=== PATIENT | female | born 2000 | race Caucasian/White ===

== ENCOUNTER 2024-07-17 14:18 | Emergency (ER) | payer SELFPAY ==
[2024-07-17 14:21] VITALS: BP 119/79; PULSE 110; RESP 16; TEMP 37.1; O2SAT 98; BMI 24.7
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
--- NOTE | 2024-07-17 15:29 | DI.RAD.S_ITS ---
PROCEDURE: XR CHEST 2V INDICATIONS: cough x 2 wks TECHNIQUE: 2 views of the chest were acquired. COMPARISON: None. FINDINGS: Surgical changes and devices: None. Lungs and pleura: Mild left perihilar bronchial wall thickening. No airspace consolidation or pleural effusion. Mediastinum: Mediastinal contours are normal. Heart size is normal. Bones and chest wall: Unremarkable IMPRESSION: Mild left perihilar bronchial wall thickening possibly viral infection. No airspace consolidation or pleural effusion. Dictated by: Padilla Westbrook M.D. on 07/17/2024 at 15:07 Approved by: Padilla Westbrook M.D. on 07/17/2024 at 15:08
[2024-07-17 16:14] VITALS: BP 120/71; PULSE 105; RESP 18; TEMP 36.9; O2SAT 98
== END 2024-07-17 16:15 | disposition home or self-care (01) ==
PROVIDERS: Emergency Provider Physician Assistant Medical
DX: G47.9 Sleep disorder, unspecified (principal); F41.9 Anxiety disorder, unspecified; R05.9 Cough, unspecified
CPT/HCPCS: 71046; 99281; 99283

== ENCOUNTER 2024-08-21 00:28 | Emergency (ER) | payer SELFPAY ==
[2024-08-21 00:39] VITALS: BP 125/69; PULSE 133; RESP 18; TEMP 38.7; O2SAT 98; BMI 24.7
[2024-08-21 00:44] VITALS: PULSE 136; O2SAT 96
--- NOTE | 2024-08-21 00:48 | ED.URI ---
HPI - URI/Sore Throat General Chief Complaint: Upper Respiratory Symptoms Stated Complaint: 101.8 temp, SABA, sore throat Time Seen by Provider: 08/21/24 00:44 Source: patient Mode of arrival: Ambulatory History of Present Illness HPI Narrative: 23-year-old female without any significant past medical history comes into the ED from for evaluation flu-like symptoms, fever chills cough muscle aches ongoing persistent for the past 12 hours, states that she had a fever earlier today did not take any medication checked her fever before coming into the ED and noted that she was still having a fever of 101 therefore decided come into the ED for further evaluation treatment. She denies any actual chest pain nausea vomiting abdominal pain or any other GI/ symptoms. No recent travel no known sick contacts Related Data Previous Rx's Medication Instructions Recorded hydroxyzine HCl 25 mg tablet 25 mg PO BEDTIME #14 tabs 07/17/24 albuterol sulfate 90 mcg/actuation 2 inh inhalation QID PRN shortness 08/21/24 breath activated powder inhaler of breath or wheezing #1 ea methylprednisolone 4 mg tablets in 4 mg PO DAILY #21 ea 08/21/24 a dose pack (Medrol (David)) Allergies Allergy/AdvReac Type Severity Reaction Status Date / Time cephalexin [From Keflex] Allergy Rash Verified 07/17/24 14:28 Review of Systems Review of Systems Narrative: General: Positive fever chills HEENT: Positive sore throat Cardiovascular: Denies any chest pain, palpitations, shortness of breath, tachycardia Respiratory: Positive cough denies wheeze stridor shortness of breath GI/: Denies any abdominal pain, nausea, vomiting, diarrhea, bright red blood per rectum, melanotic stools, urinary frequency, urinary retention, dysuria, hematuria MSK: Positive myalgias Skin: Denies any rashes, lesions, discoloration Neuro: Denies any headache, lightheadedness, dizziness, fainting, weakness Psych: Denies SI/HI Patient History Social History Smoking Status: Never smoker Smoking Status: Never smoker Exam Narrative Exam Narrative: General: Cooperative, comfortable, well-developed, not in acute distress HEENT: Patient is speaking full sentences protecting airway, exudate noted to the posterior oropharynx, Normocephalic, atraumatic, PERRLA, normal sclera, eyelids normal, Neck: Active full range of motion, atraumatic Chest: Normal to inspection, negative crepitus, no overlying erythema ecchymosis Respiratory: Normal respiratory effort, not in acute respiratory distress, clear to auscultation bilaterally negative cough, wheeze, tachypnea, rhonchi, rales Cardiology: Regular rate rhythm negative gallop, murmur, rubs GI/: Normal to inspection, soft, nonrigid, no tenderness to palpation, exam deferred MSK: Full range of active range of motion of all 4 extremities, atraumatic Skin: No rashes lesions noted Neuro: Alert awake oriented x3, moves all 4 extremities spontaneously, cranial nerves intact, able to answer all questions appropriately follows commands appropriately Psych: Cooperative, negative suicidal or homicidal ideations Initial Vital Signs Initial Vital Signs: Vital Signs Temperature 101.6 F H 08/21/24 00:39 Pulse Rate 133 H 08/21/24 00:39 Respiratory Rate 18 08/21/24 00:39 Blood Pressure 125/69 08/21/24 00:39 Pulse Oximetry 98 08/21/24 00:39 Oxygen Delivery Method Room Air 08/21/24 00:39 Course Orders Ordered: ED Orders 08/21/24 00:39 Covid-19 + FLU A/B + RSV - PCR Stat 08/21/24 00:52 Strep Grp A by PCR Rapid Stat Discontinued Medications Acetaminophen (Acetaminophen 325 Mg Tablet) 650 mg PO NOW ONE Stop: 08/21/24 00:49 Last Admin: 08/21/24 00:54 Dose: 650 mg Documented By: Dexamethasone (Dexamethasone 4 Mg/Ml Vial) 5 mg INJ NOW ONE Stop: 08/21/24 01:54 Last Admin: 08/21/24 02:05 Dose: Not Given Dexamethasone (Dexamethasone 4 Mg/Ml Vial) 4 mg INJ NOW ONE Stop: 08/21/24 02:05 Ketorolac Tromethamine (Ketorolac 30 Mg/Ml Vial) 15 mg IM NOW ONE Stop: 08/21/24 01:54 Vital Signs Vital signs: Vital Signs - 8 hr 08/21/24 00:39 Temperature 101.6 F H Pulse Rate 133 H Respiratory Rate 18 Blood Pressure 125/69 Pulse Oximetry 98 Oxygen Delivery Method Room Air MDM - URI/Sore Throat Differential Diagnosis Differential diagnosis: Likely other (Strep pharyngitis, COVID, flu, RSV) Lab Data Labs: Lab Results 08/21/24 08/21/24 Range/Units 00:39 00:52 SARS-CoV-2 (PCR) Negative (Negative) Influenza A (RT-PCR) Flu a negative (NEGATIVE) Influenza B (RT-PCR) Flu b negative (NEGATIVE) RSV (PCR) Negative (Negative) Group A Strep (PCR) Negative (Negative) MDM Narrative Medical decision making narrative: 23-year-old female without any significant past medical history comes into the ED for flu-like symptoms ongoing persistent for the past few days, also complaining of a sore throat, she states that she did not take any medications for her symptoms for the past 24 hours, she presents due to persistent symptoms denies any recent travel or sick contacts. Patient was tested for strep throat and had Respiratory panel which did not come back positive. Patient will be sent home for symptomatic treatment for acute bronchitis, patient was given strict return precautions she verbalized understanding of this and agrees to being discharged home with outpatient follow up Discharge Plan Departure Patient Disposition: Home Clinical Impression: Bronchitis Instructions: DI for Acute Bronchitis Activity Restrictions/Additional Instructions: Please follow up with the primary care doctor Please read the discharge instructions sheet carefully and bring all papers to all doctor follow-up visits, as it may contain information that your doctor may want to see. Disease processes change and evolve, if your symptoms worsen or if you develop any new symptoms that are concerning to you please return for evaluation. Your evaluation today does not show any evidence of any life-threatening/serious illnesses requiring admission to the hospital or surgery. Please follow-up with your doctor for re-evaluation in approximately 1 day. Seek immediate medical attention for any worrisome symptoms. *If you do not have a primary care provider please contact the [facility] Resource line at [phone]. They will ask some questions about your medical history and help get you set up with a doctor in the community. Prescriptions: New methylprednisolone [Medrol (Dvaid)] 4 mg tablets,dose pack 4 mg PO DAILY Qty: 21 0RF albuterol sulfate 90 mcg/actuation aerosol powdr breath activated 2 inh inhalation QID PRN (Reason: shortness of breath or wheezing) Qty: 1 0RF No Action hydroxyzine HCl 25 mg tablet 25 mg PO BEDTIME Qty: 14 0RF Stand Alone Forms: Patient Portal/API/Survey, Work Release Note
[2024-08-21] MEDS: ACETAMINOPHEN 325 MG TABLET 650 MG PO (00:54)
[2024-08-21 01:00] VITALS: PULSE 132; O2SAT 97
[2024-08-21 01:13] LABS: Strep Grp A by PCR Rapid Negative (Negative)
[2024-08-21 01:30] VITALS: PULSE 114; O2SAT 97
[2024-08-21 01:37] LABS: Influenza A - CEPHEID Flu A NEGATIVE (NEGATIVE); Influenza B - CEPHEID Flu B NEGATIVE (NEGATIVE); Respiratory Syncytial Virus Negative (Negative)
[2024-08-21 01:49] LABS: COVID-19 CEPHEID 4-PLEX PCR Negative (Negative)
[2024-08-21] MEDS: KETOROLAC 30 MG/ML VIAL 15 MG IM (02:12)
[2024-08-21] MEDS: DEXAMETHASONE 4 MG/ML VIAL INJ (02:13)
[2024-08-21 02:19] VITALS: BP 104/70; RESP 18
== END 2024-08-21 02:20 | disposition home or self-care (01) ==
PROVIDERS: Emergency Provider Student in an Organized Health Care Education/Training Program
DX: J20.9 Acute bronchitis, unspecified (principal)
CPT/HCPCS: 0241U; 87651; 96372; 99283; 99284; J1100; J1885

== ENCOUNTER 2024-09-29 14:50 | Emergency (ER) | payer SELFPAY ==
[2024-09-29 14:55] VITALS: BP 137/67; PULSE 80; RESP 18; TEMP 36.6; O2SAT 100; BMI 24.7
[2024-09-29 17:05] LABS: Bacteria Urine Occasional (0-1); RBC Urine >100/HPF (0-5/HPF); Squamous Epithelial Cell Urine 0-1 /HPF (0-5/HPF); Urine Volume 10mL (spun); WBC Urine 1-5/HPF (0-5/HPF)
[2024-09-29 17:06] LABS: Culture Indicated Urine Cult Not Indicated
== END 2024-09-29 18:00 | disposition left against medical advice (07) ==
PROVIDERS: Emergency Provider Emergency Medicine
DX: M79.652 Pain in left thigh (principal)
CPT/HCPCS: 81003; 81015; 81025; 99282

== ENCOUNTER 2025-02-12 14:20 | Emergency (ER) | payer MEDICAID, SELFPAY ==
[2025-02-12 15:10] VITALS: BP 114/67; PULSE 94; RESP 14; TEMP 37.1; O2SAT 100; BMI 26.5
[2025-02-12] MEDS: ONDANSETRON 4 MG ODT PO (15:16)
[2025-02-12 17:50] LABS: Culture Indicated Urine Specimen Cultured
[2025-02-12 19:33] VITALS: BP 112/56; PULSE 88; RESP 18; TEMP 36.4; O2SAT 100
--- NOTE | 2025-02-12 19:34 | PC.NURSE ---
Pt states that symptoms have not changed even after the zofran. However, at 15 weeks along she has had nausea and back pain almost entire .
--- NOTE | 2025-02-12 21:31 | ED.NAVMDI ---
HPI - Nausea/Vomiting/Diarrhea General Chief complaint: Nausea/Vomiting/Diarrhea Stated complaint: weak, hot/cold flashes, headache, 15wks Time Seen by Provider: 02/12/25 20:43 Source: patient Mode of arrival: Ambulatory History of Present Illness HPI Narrative: 24-year-old with last menstrual period perhaps Easter, [facility] ultrasound done at the time, EDC 08/07/2025, believes herself to be 15 weeks gestation now, complaining of nausea nonbloody emesis, no diarrhea, having back pain and leg pain, no fevers or chills. No vaginal bleeding recent. No leaking of fluid. Related Data Previous Rx's ?Medication ?Instructions ?Recorded hydroxyzine HCl 25 mg tablet 25 mg PO BEDTIME #14 tabs 07/17/24 albuterol sulfate 90 mcg/actuation 2 inh inhalation QID PRN shortness 08/21/24 breath activated powder inhaler of breath or wheezing #1 ea methylprednisolone 4 mg tablets in 4 mg PO DAILY #21 ea 08/21/24 a dose pack (Medrol (David)) nitrofurantoin 100 mg PO Q12H 7 days #14 caps 02/12/25 monohydrate/macrocrystals 100 mg capsule (Macrobid) Allergies Allergy/AdvReac Type Severity Reaction Status Date / Time cephalexin (From Keflex) Allergy Rash Verified 02/12/25 15:10 Patient History Social History Smoking Status: Never smoker Smoking Status: Never smoker Exam Narrative Exam Narrative: GENERAL: Well-developed patient, in mild distress. HEAD: Atraumatic. Normocephalic. EYES: Pupils equal round and reactive. Extraocular motions intact. No scleral icterus. No injection or drainage. ENT: Nose without bleeding, purulent drainage. Throat without erythema, tonsillar hypertrophy or exudate. Airway patent. NECK: Trachea midline. Non tender CARDIOVASCULAR: Regular rate and rhythm without murmurs, gallops, or rubs. RESPIRATORY: Clear to auscultation. Breath sounds equal bilaterally. No wheezes, rales, or rhonchi. GASTROINTESTINAL: Abdomen soft, non-tender, nondistended. Fundal height palpable mid-way pubis to umbilicus. EXTREMITIES: No edema or joint tenderness. BACK: Nontender without deformity or crepitance. No flank tenderness. NEURO: AOx3. Motor functions grossly nonfocal. SKIN: No rash or erythema of visible areas Initial Vital Signs Initial Vital Signs: Vital Signs Temperature 98.8 F 02/12/25 15:10 Pulse Rate 94 H 02/12/25 15:10 Respiratory Rate 14 02/12/25 15:10 Blood Pressure 114/67 02/12/25 15:10 Pulse Oximetry 100 02/12/25 15:10 Oxygen Delivery Method Room Air 02/12/25 15:10 Course Orders Ordered: Discontinued Medications Ceftriaxone Sodium 1,000 mg/ (Sodium Chloride) 100 mls @ 200 mls/hr IV NOW ONE Stop: 02/12/25 21:25 Last Admin: 02/12/25 22:00 Dose: Not Given Documented By: Nitrofurantoin Macrocrystals (Nitrofurantoin Er 100 Mg Capsule) 100 mg PO NOW ONE Stop: 02/12/25 22:16 Last Admin: 02/12/25 22:41 Dose: 100 mg Documented By: NETO Ondansetron HCl (Ondansetron 4 Mg/2 Ml Inj) 4 mg IV NOW PRN PRN Reason: Nausea And Vomiting Ondansetron HCl (Ondansetron 4 Mg Odt) 4 mg PO NOW PRN PRN Reason: Nausea And Vomiting Last Admin: 02/12/25 15:16 Dose: 4 mg Documented By: GARRY Ondansetron HCl (Ondansetron 4 Mg Odt Prepack) 1 bottle MISC DIRECTED ONE Stop: 02/12/25 21:46 Last Admin: 02/12/25 22:41 Dose: 1 bottle Documented By: NETO Vital Signs Vital signs: Vital Signs - 8 hr 02/12/25 19:33 Temperature 97.6 F Pulse Rate 88 Respiratory Rate 18 Blood Pressure 112/56 L Pulse Oximetry 100 Oxygen Delivery Method Room Air MDM - Nausea/Vomiting/Diarrhea Lab Data 02/12/25 22:12 02/12/25 22:12 Labs: Lab Results 02/12/25 02/12/25 Range/Units 15:14 22:12 WBC 9.9 (4.5-11.0) X10^3/uL RBC 4.29 (4.0-5.2) X10^6/uL Hgb 12.9 (12.0-16.0) g/dL Hct 37.1 (36-46) % MCV 86.6 (80-100) fL MCH 30.0 (26-34) PG MCHC 34.7 (30-36) % RDW 12.5 (11.6-14.8) % Plt Count 243 (150-400) X10^3/uL Neut % (Auto) 68.5 (50-75) % Lymph % (Auto) 23.2 L (25-40) % [place] % (Auto) 5.9 (3-14) % Eos % (Auto) 1.2 L (2-4) % Baso % (Auto) 1.2 (0-2) % Neut # (Auto) 6800 (2485-3041) /uL Lymph # (Auto) 2300 (3172-8203) /uL [place] # (Auto) 600 (0-900) /uL Eos # (Auto) 100 (0-450) /uL Baso # (Auto) 100 (0-100) /uL Sodium 136 L (137-145) mmol/L Potassium 3.4 (3.4-5.1) mmol/L Chloride 104 (98-107) mmol/L Carbon Dioxide 26 (22-32) mmol/L BUN 6 L (7-17) mg/dL Creatinine 0.57 (0.52-1.04) mg/dL Estimated GFR > 60 (>60) mL/min BUN/Creatinine Ratio 10.5 (6-22) Glucose 92 (70-99) mg/dL Calcium 8.9 (8.4-10.2) mg/dL Total Bilirubin 0.3 (0.2-1.3) mg/dL AST 24 (14-36) IU/L ALT 13 (<35) IU/L Alkaline Phosphatase 59 (38-126) U/L Total Protein 7.2 (6.3-8.2) g/dL Albumin 4.1 (3.5-5.0) g/dL Globulin 3.1 (1.7-4.1) g/dL Albumin/Globulin Ratio 1.3 (1.0-2.8) Urine RBC None seen (0-5/HPF) Urine WBC 5-10/hpf H (0-5/HPF) Ur Squamous Epith Cells 1-5 /hpf (0-5/HPF) Urine Bacteria Many (>30) H (None) Urine Mucus 1+ H (Negative) Ur Culture Indicated? Specimen cultured Vol Urine Centrifuged 10ml (spun) Blood Type A Negative Urine Dip Bedside Urine Glucose Negative Bedside Urine Bilirubin - Negative Bedside Urine Ketone +++ 80 Urine Specific [place] 1.020 Bedside Urine Occult Blood - Negative Bedside Urine pH 6.0 Bedside Urine Protein +/- 15 Bedside Urine Urobilinogen - Negative Bedside Urine Nitrite - Negative Bedside Urine Leukocytes + 70 Esterase Imaging Data Ultrasound pelvis: Radiologist's Impression: [address] [id number] Ultrasound Report Signed Patient: Kristina Clark MR#: [id number] : 2000 Acct:[id number] Age/Sex: 24 / F Date of Service: 02/12/25 Loc: ED Accession Number: [id number] Procedure: US OB >= 14 weeks Fetus Ordering Provider: Abiodun Alonzo MD PROCEDURE: US OB >= 14 WEEKS FETUS INDICATIONS: abd back pain, 15 weeks gest OUTSIDE/PRIOR DATING DATA: Last menstrual period (LMP): 10/31/2024. LMP-based estimated date of delivery (GERALDO): 08/07/2025. TECHNIQUE: Real-time scanning was performed of the fetus, with image documentation and biometric measurements. Endovaginal scanning: Not performed COMPARISON: None. FINDINGS: General: A single living intrauterine gestation is present. Presentation: Transverse. Placenta: Placental position is posterior , without previa. Amniotic fluid index: Early gestational age. Deepest pocket is 4 cm. heart rate: 151 beats per minute. Maternal cervical canal: 2.7 cm cm long. Normal lower limit is 2.5 cm. Clinically estimated gestational age: 14 weeks, 6 days IMPRESSION: Single live intrauterine consistent with 14 weeks and 6 days. No abnormalities are identified. We strive to produce accurate, complete, and clear reports of imaging services. To assist us in improving patient care, this report was composed using standard report templates and voice recognition software. Therefore, it may contain abnormal punctuation, insertions and/or omissions. Occasional wrong-word or sound-alike substitutions may occur. Though we review the report and make efforts to correct it, we do recommend that the report be read carefully in proper context to recognize any text inaccuracies. Dictated by: Guille Dillon M.D. on 02/12/2025 at 23:01 Approved by: Guille Dillon M.D. on 02/12/2025 at 23:03 [facility] Narrative Medical decision making narrative: 24-year-old female reports 1st , due date via [facility] ultrasound, believes her EDC to be 08/07/2025, now 15 weeks gestation, having nausea and vomiting, not yet having any visit with any established provider. Some back discomfort. No fever on triage, unremarkable vitals. Urinalysis suspicious for infection, urine culture ordered. History of cephalosporin allergy. Macrobid antibiotic given, prescription 7 day course sent to her pharmacy. Ultrasound pelvis today US shows live IUP carvajal 14w6d EGA, no acute changes. See radiology report. Given contact information for Obstetrics on-call Dr. Carvalho for follow-up and care establish care. Follow up with Dr. Carvalho office this week. Return precautions discussed. Home with family. Discharge Plan Departure Patient Disposition: Home Clinical Impression: Urinary tract infection, Activity Restrictions/Additional Instructions: Fifteen week gestation , with nausea and vomiting, some back discomfort. No fever on triage. Urinalysis suspicious for infection. History of allergy to cephalosporin antibiotics. Oral dose of nitrofurantoin/Macrobid antibiotic given in the emergency department, prescription for 7 day course sent to your pharmacy. Take antibiotics as prescribed. Drink plenty of fluids. Ultrasound of the pelvis today showed live intrauterine at 14 weeks 6 days size, no acute changes were noted on imaging today. Follow up with Obstetrics for further care, contact information given for the office of Dr. Carvalho who was on-call. Prescriptions: New nitrofurantoin monohyd/m-cryst [Macrobid] 100 mg capsule 100 mg PO Q12H 7 Days Qty: 14 0RF Rx Instructions: must administer with a meal/food No Action hydroxyzine HCl 25 mg tablet 25 mg PO BEDTIME Qty: 14 0RF methylprednisolone [Medrol (David)] 4 mg tablets,dose pack 4 mg PO DAILY Qty: 21 0RF albuterol sulfate 90 mcg/actuation aerosol powdr breath activated 2 inh inhalation QID PRN (Reason: shortness of breath or wheezing) Qty: 1 0RF Referrals: Miscellaneous,Doctor, [Primary Care Provider, Medical] Sydnee Carvalho DO [Physician, PLUMBER SUPERVISOR] Stand Alone Forms: Patient Portal/API, Work Release Note
--- NOTE | 2025-02-12 21:44 | DI.US.S_ITS ---
PROCEDURE: US OB >= 14 WEEKS FETUS INDICATIONS: abd back pain, 15 weeks gest OUTSIDE/PRIOR DATING DATA: Last menstrual period (LMP): 10/31/2024. LMP-based estimated date of delivery (GERALDO): 08/07/2025. TECHNIQUE: Real-time scanning was performed of the fetus, with image documentation and biometric measurements. Endovaginal scanning: Not performed COMPARISON: None. FINDINGS: General: A single living intrauterine gestation is present. Presentation: Transverse. Placenta: Placental position is posterior , without previa. Amniotic fluid index: Early gestational age. Deepest pocket is 4 cm. heart rate: 151 beats per minute. Maternal cervical canal: 2.7 cm cm long. Normal lower limit is 2.5 cm. Clinically estimated gestational age: 14 weeks, 6 days IMPRESSION: Single live intrauterine consistent with 14 weeks and 6 days. No abnormalities are identified. We strive to produce accurate, complete, and clear reports of imaging services. To assist us in improving patient care, this report was composed using standard report templates and voice recognition software. Therefore, it may contain abnormal punctuation, insertions and/or omissions. Occasional wrong-word or sound-alike substitutions may occur. Though we review the report and make efforts to correct it, we do recommend that the report be read carefully in proper context to recognize any text inaccuracies. Dictated by: Guille Dlilon M.D. on 02/12/2025 at 23:01 Approved by: Guille Dillon M.D. on 02/12/2025 at 23:03
--- NOTE | 2025-02-12 22:21 | PC.NURSE ---
Pt to imaging via ED wheelchair with traffic control technician
[2025-02-12 22:23] LABS: Add Manual Diff / Slide Review NO; Hematocrit 37.1 % (36-46); Hemoglobin 12.9 g/dL (12.0-16.0); Lymphocytes Absolute Auto 2300 /uL (1100-4500); Mean Corpuscular HGB Conc 34.7 % (30-36); Mean Corpuscular Hemoglobin 30.0 PG (26-34); Mean Corpuscular Volume 86.6 fL (80-100); Platelet Count 243 X10^3/uL (150-400)
[2025-02-12 22:34] LABS: Alanine Aminotransferase 13 IU/L (<35); Albumin 4.1 g/dL (3.5-5.0); Albumin Globulin Ratio 1.3 (1.0-2.8); Alkaline Phosphatase 59 U/L (38-126); Blood Urea Nitrogen 6 mg/dL (7-17); Calcium 8.9 mg/dL (8.4-10.2); Carbon Dioxide 26 mmol/L (22-32); Chloride 104 mmol/L (98-107); Estimated Glomerular Filt Rate > 60 mL/min (>60); Globulin 3.1 g/dL (1.7-4.1); Glucose 92 mg/dL (70-99); HEMOLYSIS < 15 (0-50); Potassium 3.4 mmol/L (3.4-5.1); Sodium 136 mmol/L (137-145); Total Protein 7.2 g/dL (6.3-8.2)
[2025-02-12] MEDS: ONDANSETRON 4 MG ODT PREPACK 1 BOTTLE MISC (22:41)
[2025-02-12] MEDS: NITROFURANTOIN ER 100 MG CAPSULE PO (22:41)
[2025-02-13 00:09] VITALS: BP 120/69; PULSE 97; RESP 15; O2SAT 97
== END 2025-02-13 00:10 | disposition home or self-care (01) ==
PROVIDERS: Family Medicine; Emergency Provider Emergency Medicine
DX: O23.42 Unspecified infection of urinary tract in pregnancy, second trimester (principal); N39.0 Urinary tract infection, site not specified; Z3A.15 15 weeks gestation of pregnancy
CPT/HCPCS: 76811; 80053; 81003; 81015; 85025; 86900; 86901; 87086; 99283; 99284

== ENCOUNTER → 2025-03-20 14:38 | Outpatient (CLI) | payer OTHER, SELFPAY ==
[2025-03-20 15:20] LABS: Add Manual Diff / Slide Review NO; Hematocrit 36.0 % (36-46); Hemoglobin 12.4 g/dL (12.0-16.0); Lymphocytes Absolute Auto 1700 /uL (1100-4500); Mean Corpuscular HGB Conc 34.5 % (30-36); Mean Corpuscular Hemoglobin 29.9 PG (26-34); Mean Corpuscular Volume 86.7 fL (80-100); Platelet Count 267 X10^3/uL (150-400)
[2025-03-20 15:27] LABS: Hemoglobin A1C% w Est Avg Glu 5.0 % (4.0-6.0)
[2025-03-20 15:31] LABS: Appearance Urine UA CLEAR; Bilirubin Urine UA NEGATIVE (NEGATIVE); Color Urine UA YELLOW; Glucose Urine UA NEGATIVE (Negative); Ketones Urine UA NEGATIVE (NEGATIVE); Leukocyte Esterase Urine UA TRACE (NEGATIVE); Nitrite Urine UA NEGATIVE (Negative); Occult Blood Urine UA NEGATIVE (Negative); Protein Urine UA NEGATIVE (Negative); Specific Gravity Urine UA 1.020 (1.000-1.035); Urobilinogen Urine UA 0.2 E.U./dL (0.2)
[2025-03-20 15:33] LABS: pH Urine UA 6.0 (4.5-8.0)
[2025-03-20 15:49] LABS: Natera Collection Specimen Collected
[2025-03-20 17:12] LABS: Urine N gonorrhoeae NOT DETECTED
[2025-03-20 17:13] LABS: Urine Chlamydia DETECTED
[2025-03-21 14:41] LABS: Hepatitis B Surface Antigen NEGATIVE s/c (NEGATIVE)
[2025-03-21 14:59] LABS: HIV 1 & 2 Ab/Ag 4th Gen Combo NEGATIVE (NEGATIVE); Hep C Virus Ab w/Reflex Quant NEGATIVE s/c (NEGATIVE)
== END ==
PROVIDERS: PCP Family Medicine; Referring Provider Family Medicine; Visit Provider Family Medicine
DX: O99.210 Obesity complicating pregnancy, unspecified trimester (principal)
CPT/HCPCS: 36415; 80055; 81003; 81015; 83036; 86787; 86803; 86850; 86900; 86901; 87086; 87389; 87491; 87591

== ENCOUNTER 2025-03-27 22:12 | Observation (INO) | payer OTHER, SELFPAY ==
[2025-03-28 00:14] LABS: Appearance Urine UA CLEAR; Bilirubin Urine UA 1+ (NEGATIVE); Color Urine UA YELLOW; Glucose Urine UA NEGATIVE (Negative); Ketones Urine UA 3+ (NEGATIVE); Leukocyte Esterase Urine UA TRACE (NEGATIVE); Nitrite Urine UA NEGATIVE (Negative); Occult Blood Urine UA NEGATIVE (Negative); Protein Urine UA NEGATIVE (Negative); Specific Gravity Urine UA 1.020 (1.000-1.035); Urobilinogen Urine UA 2.0 E.U./dL (0.2)
[2025-03-28 00:17] LABS: pH Urine UA 6.5 (4.5-8.0)
[2025-03-28 00:20] LABS: Ictotest Urine Negative (Negative)
[2025-03-28 00:22] LABS: Culture Indicated Urine Cult Not Indicated
== END 2025-03-28 00:36 | disposition home or self-care (01) ==
LOC: LABOR 22:13
PROVIDERS: Admitting Provider Family Medicine; PCP Family Medicine; Referring Provider Family Medicine; Visit Provider Family Medicine
DX: O23.42 Unspecified infection of urinary tract in pregnancy, second trimester (principal); Z3A.21 21 weeks gestation of pregnancy
CPT/HCPCS: 59025; 81001; 87086; G0378; G0379

== ENCOUNTER → 2025-04-20 13:33 | Outpatient (CLI) | payer OTHER, SELFPAY ==
--- NOTE | 2025-04-20 13:34 | DI.US.S_ITS ---
PROCEDURE: US OB >= 14 WEEKS FETUS INDICATIONS: anatomy scan OUTSIDE/PRIOR DATING DATA: Last menstrual period (LMP): 10/31/24 LMP-based estimated date of delivery (GERALDO): 08/07/25. First dating scan (date and location): None available. Estimated date of delivery (GERALDO) from first dating scan: Not applicable. The calculations are made using the working GERALDO of 08/14/25. TECHNIQUE: Real-time scanning was performed of the fetus, with image documentation and biometric measurements. Endovaginal scanning: Not performed COMPARISON: [facility], OB >= 14 WEEKS FETUS, 02/12/2025, 22:29. FINDINGS: General: A single living intrauterine gestation is present. Presentation: Transverse, head to maternal right. Placenta: Placental position is posterior , without previa. Grow delete Amniotic fluid index: 19.4 cm, normal range is 5-24 cm. Single deepest vertical pocket is 6.3 cm. heart rate: 158 beats per minute. Maternal cervical canal: Closed and 3.5 cm long. Normal lower limit is 2.5 cm. biometrics: Biparietal diameter: 5.8 cm, 23 weeks four days Head circumference: 21.8 cm, 23 weeks six days Abdominal circumference: 19.0 cm, 23 weeks five days Femur length: 3.9 cm, 22 weeks three days Clinically estimated gestational age: 24 weeks three days Composite gestational age from present scan: 23 weeks three days Estimated weight and percentile: 575 g, 6th percentile. Anatomic survey: Neuro: Ventricles are non-dilated at less than 10 mm. Cisterna magna is normal at 3-11 mm. Cerebellum is normal in size and morphology. Nuchal skin fold: Normal at less than 6 mm between 14-21 weeks gestational age. Face: Nose and lips, facial profile are normal. Spine: No evidence for spina bifida. Heart: 4-chambered heart is present, with normal ventricular outflow tracts. Diaphragm: Diaphragm is intact. Stomach: Left-sided stomach is present. Kidneys: No hydronephrosis. Normal is less than 5 mm in 2nd trimester, less than 7 mm in 3rd trimester. Cord: 3-vessel cord has orthotopic insertion. Bladder: Normal in size. Extremities: All 4 extremities identified. IMPRESSION: Single living intrauterine with an estimated weight at the 6th percentile. Composite gestational age is one week behind the expected gestational age. Normal anatomy. Closed cervix and normal amniotic fluid volume. We strive to produce accurate, complete, and clear reports of imaging services. To assist us in improving patient care, this report was composed using standard report templates and voice recognition software. Therefore, it may contain abnormal punctuation, insertions and/or omissions. Occasional wrong-word or sound-alike substitutions may occur. Though we review the report and make efforts to correct it, we do recommend that the report be read carefully in proper context to recognize any text inaccuracies. Dictated by: Kadie Reaves M.D. on 04/21/2025 at 22:39 Approved by: Kadie Reaves M.D. on 04/21/2025 at 22:44
== END ==
LOC: US 13:34
PROVIDERS: PCP Family Medicine; Referring Provider Family Medicine; Visit Provider Family Medicine
DX: Z34.02 Encounter for supervision of normal first pregnancy, second trimester (principal)
CPT/HCPCS: 76811

== ENCOUNTER → 2025-05-11 16:29 | Outpatient (CLI) | payer OTHER, SELFPAY ==
--- NOTE | 2025-05-11 16:30 | DI.US.S_ITS ---
PROCEDURE: US OB FOLLOW UP INDICATIONS: f/up growth restriction OUTSIDE/PRIOR DATING DATA: First dating scan (date and location): 04/20/2025. Estimated date of delivery (GERALDO) from first dating scan: 08/14/2025. The calculations are made using the clinical GERALDO of 08/07/2025. TECHNIQUE: Real-time scanning was performed of the fetus, with image documentation and biometric measurements. Endovaginal scanning: Not performed COMPARISON: [facility], OB >= 14 WEEKS FETUS, 04/20/2025, 13:56. FINDINGS: General: A single living intrauterine gestation is present. Presentation: Vertex. Placenta: Placental position is posterior, without previa. Amniotic fluid index: 16.3 cm, normal range is 5-24 cm. Single deepest vertical pocket is 5 cm. heart rate: 145 beats per minute. Maternal cervical canal: 4.1 cm long. Normal lower limit is 2.5 cm. biometrics: Biparietal diameter: 7 cm, 28 weeks 2 days Head circumference: 25.1 cm, 27 weeks 1 day Abdominal circumference: 21.8 cm, 26 weeks 2 days Femur length: 4.8 cm, 26 weeks 1 day Clinically estimated gestational age: 27 weeks 3 days Composite gestational age from present scan: 27 weeks 0 days Estimated weight and percentile: 934 g, 10th percentile IMPRESSION: 1. [place] living intrauterine at 27 weeks 0 days based on today's ultrasound. Concordant with prior dating. Fetus is in the 10th percentile for weight. 2. Normal placenta and amniotic fluid. We strive to produce accurate, complete, and clear reports of imaging services. To assist us in improving patient care, this report was composed using standard report templates and voice recognition software. Therefore, it may contain abnormal punctuation, insertions and/or omissions. Occasional wrong-word or sound-alike substitutions may occur. Though we review the report and make efforts to correct it, we do recommend that the report be read carefully in proper context to recognize any text inaccuracies. Dictated by: Oswald Suarez M.D. on 05/12/2025 at 11:07 Approved by: Oswald Suarez M.D. on 05/12/2025 at 11:10
== END ==
PROVIDERS: PCP Family Medicine; Referring Provider Family Medicine; Visit Provider Family Medicine
DX: Z34.02 Encounter for supervision of normal first pregnancy, second trimester (principal); Z3A.27 27 weeks gestation of pregnancy
CPT/HCPCS: 76816

== ENCOUNTER → 2025-05-17 15:13 | Outpatient (CLI) | payer OTHER, SELFPAY ==
[2025-05-17 20:54] LABS: Urine N gonorrhoeae NOT DETECTED
[2025-05-17 20:59] LABS: Urine Chlamydia NOT DETECTED
== END ==
PROVIDERS: PCP Family Medicine; Visit Provider Family Medicine
DX: Z34.00 Encounter for supervision of normal first pregnancy, unspecified trimester (principal)
CPT/HCPCS: 87491; 87591

== ENCOUNTER → 2025-05-31 11:59 | Outpatient (CLI) | payer OTHER, SELFPAY ==
[2025-05-31 14:14] LABS: Hematocrit 36.8 % (36-46); Hemoglobin 12.4 g/dL (12.0-16.0); Mean Corpuscular HGB Conc 33.8 % (30-36); Mean Corpuscular Hemoglobin 30.4 PG (26-34); Mean Corpuscular Volume 89.9 fL (80-100); Platelet Count 251 X10^3/uL (150-400)
[2025-05-31 14:19] LABS: GTT (PREG) 1 Hour PP 50gm Dose 132 mg/dL (76-139)
== END ==
PROVIDERS: PCP Family Medicine; Referring Provider Family Medicine; Visit Provider Family Medicine
DX: Z34.00 Encounter for supervision of normal first pregnancy, unspecified trimester (principal)
CPT/HCPCS: 36415; 82950; 85027; 86592

== ENCOUNTER 2025-06-06 16:55 | Observation (INO) | payer OTHER, SELFPAY ==
[2025-06-06 17:27] LABS: Appearance Urine UA CLEAR; Bilirubin Urine UA NEGATIVE (NEGATIVE); Color Urine UA YELLOW; Glucose Urine UA NEGATIVE (Negative); Ketones Urine UA NEGATIVE (NEGATIVE); Leukocyte Esterase Urine UA NEGATIVE (NEGATIVE); Nitrite Urine UA NEGATIVE (Negative); Occult Blood Urine UA NEGATIVE (Negative); Protein Urine UA NEGATIVE (Negative); Specific Gravity Urine UA 1.010 (1.000-1.035); Urobilinogen Urine UA 0.2 E.U./dL (0.2)
[2025-06-06 17:28] LABS: pH Urine UA 5.5 (4.5-8.0)
[2025-06-06 17:33] LABS: Culture Indicated Urine Cult Not Indicated
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
== END 2025-06-06 19:30 | disposition home or self-care (01) ==
PROVIDERS: Admitting Provider Obstetrics & Gynecology; PCP Family Medicine; Referring Provider Obstetrics & Gynecology; Visit Provider Obstetrics & Gynecology
DX: O47.02 False labor before 37 completed weeks of gestation, second trimester (principal); Z3A.24 24 weeks gestation of pregnancy
CPT/HCPCS: 59025; 59050; 76815; 81001; G0378; G0379

== ENCOUNTER → 2025-06-29 16:08 | Outpatient (CLI) | payer OTHER, SELFPAY ==
--- NOTE | 2025-06-29 16:09 | DI.US.S_ITS ---
PROCEDURE: US OB FOLLOW UP INDICATIONS: SMALL FOR GESTATIONAL AGE OUTSIDE/PRIOR DATING DATA: Working GERALDO: 08/07/2025 TECHNIQUE: Real-time scanning was performed of the fetus, with image documentation and biometric measurements. Endovaginal scanning: Not performed COMPARISON: [facility], , OB FOLLOW UP, 05/11/2025, 17:01. FINDINGS: General: A single living intrauterine gestation is present. Presentation: Vertex. Placenta: Placental position is posterior , without previa. Amniotic fluid index: 16.3 cm, normal range is 5-24 cm. Single deepest vertical pocket is 5 cm. heart rate: 145 beats per minute. Maternal cervical canal: 4.1 cm long. Normal lower limit is 2.5 cm. biometrics: Biparietal diameter: 7 centimeter, 28 weeks 2 days Head circumference: 25.1 centimeter, 27 weeks 1 day Abdominal circumference: 21.8 centimeter, 26 weeks 2 days Femur length: 4.8 centimeters, 26 weeks 1 day Clinically estimated gestational age: 27 weeks 3 days Composite gestational age from present scan: 27 weeks 0 days Estimated weight and percentile: 934 grams, 10 percentile Other: Not applicable. IMPRESSION: Single living intrauterine at 27 weeks 3 days, GERALDO of 08/07/2025. Estimated weight of 934 grams, 10 percentile. We strive to produce accurate, complete, and clear reports of imaging services. To assist us in improving patient care, this report was composed using standard report templates and voice recognition software. Therefore, it may contain abnormal punctuation, insertions and/or omissions. Occasional wrong-word or sound-alike substitutions may occur. Though we review the report and make efforts to correct it, we do recommend that the report be read carefully in proper context to recognize any text inaccuracies. Dictated by: Emanuel Escobar M.D. on 06/30/2025 at 12:40 Approved by: Emanuel Escobar M.D. on 06/30/2025 at 12:44
== END ==
LOC: US 16:09
PROVIDERS: PCP Family Medicine; Referring Provider Family Medicine; Visit Provider Family Medicine
DX: Z34.03 Encounter for supervision of normal first pregnancy, third trimester (principal); Z3A.27 27 weeks gestation of pregnancy
CPT/HCPCS: 76816

== ENCOUNTER → 2025-07-12 16:30 | Outpatient (CLI) | payer OTHER, SELFPAY ==
[2025-07-13 13:56] LABS: Strep Grp B PCR NEG for Grp B Strep
== END ==
PROVIDERS: PCP Family Medicine; Visit Provider Family Medicine
DX: Z36.85 Encounter for antenatal screening for Streptococcus B (principal)
CPT/HCPCS: 87653